=== PATIENT | male | born 1965 | race Caucasian/White ===

== ENCOUNTER 2016-07-09 11:10 | Observation (INO) | payer BC, OTHER ==
[~2016-07-09] VITALS: Ht 167.6 cm; Wt 89.0 kg
--- NOTE | ~2016-07-09 | EKG ---
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
--- NOTE | ~2016-07-09 | EEG ---
[facility] [place] [address] ELECTROENCEPHALOGRAM Name: RAO JACK Room #: 430-P [facility] Madalyn Ruelas#: [id number] Admission: 07/09/16 Attend Phys: Jasper Barrios, Discharge: 07/10/16 Date of : 61 Report #: [id number] THIS REPORT FOR: //name// CC: Dariel Barrios DATE OF SERVICE: 07/10/2016 This patient is being evaluated for dizziness. EEG was done by placing the electrodes by standard 10-20 system of electrode placement. Both referential and sequential montages were used for recording. Background activity in this patient's EEG is about 9 Hz and 20 microvolts. It is a symmetrical activity. This patient become drowsy that is associated with bilateral slowing and vertex sharp waves on both sides. Photic stimulation was unremarkable. Throughout the record, no active epileptiform activity was noticed. IMPRESSION: This patient's EEG is within normal limit. Thank you very much for this referral. By: [id number] Tucker Tapia MD /mon[place]
--- NOTE | ~2016-07-09 | D ---
[facility] [place] [address] DISCHARGE SUMMARY Name: RAO JACK JR Room #: 430-P [facility] Madalyn Ruelas#: [id number] Admission: 07/09/16 Attend Phys: Rufus Yoo Discharge: 07/10/16 Date of : 61 Report #: [id number] THIS REPORT FOR: //name// CC: Dariel Barrios FINAL DIAGNOSIS: 1. Dizziness. 2. Meningioma. HOSPITAL COURSE: The patient was admitted with dizziness. CT and MRI were obtained. 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 The patient seemed to have a being told this in the past, it is unclear whether this has changed, however; we had no other images to compare. He was seen by neurology service and they were going to empirically treat him for seizure at this time with Topamax. They recommended he be referred to a neurosurgeon at in regards to the meningioma. His lipid panel was a little bit elevated and neurology started Lipitor. He had no other interval complication. DISPOSITION: He will be discharged to home with diet and activity as tolerated, [id number] Prilosec plus Topamax 50 mg at bedtime, Lipitor 20 mg. Follow up with Dr. Barrios in a week and Dr. Abbasi in 4 weeks. <ELECTRONICALLY SIGNED> By: Vivek Zhao MD 07/13/16 1238 1644 [id number] Vivek Zhao MD /monroe
--- NOTE | ~2016-07-09 | H ---
[facility] [place] [address] HISTORY AND PHYSICAL Name: RAO JACK Room #: 430-P [facility] M.RChris#: [id number] Admission: 07/09/16 Attend Phys: Rufus Yoo Discharge: Date of : 61 Report #: [id number] THIS REPORT FOR: //name// CC: Dariel Barrios DATE OF SERVICE: 07/09/2016 CHIEF COMPLAINT: Dizziness. HISTORY OF PRESENT ILLNESS: The patient is a 50-year-old gentleman who was admitted through the Emergency Room with a 1-day onset of dizziness, left arms numbness. Symptoms began yesterday morning when he awoke, but he presented to the Emergency Room around 11:30. He said he felt like he was "in a fog," felt lightheaded, is going to faint. His reported that he was having trouble speaking. Apparently, he has been having intermittent dizzy episodes for about 3 weeks. He said they usually last for about an hour and a half. He says he feels a little bit "queasy" to the stomach, but he has had no significant nausea or vomiting. This morning, he has been up and he says he feels a little better, but still feels a little bit of lightheaded feeling. He has had no headache, chest pain, shortness of breath, fever or chills. PAST MEDICAL HISTORY: Anxiety, he has a known meningioma behind the right orbit. PAST SURGICAL HISTORY: None. FAMILY HISTORY: Noncontributory. SOCIAL HISTORY: He chews tobacco, occasional alcohol use. , lives at home. ALLERGIES: None. MEDICATIONS: None. REVIEW OF SYSTEMS: As above. He denies headache, visual change, trouble swallowing, chest pain, shortness of breath, abdominal pain, dysuria, myalgias, syncope or fall. PHYSICAL EXAMINATION: VITAL SIGNS: Temperature 36.9, pulse 61, respirations 18, blood pressure 131/84, O2 sat on room air. GENERAL: He is awake and alert, in no distress. HEAD AND NECK: Unremarkable. LUNGS: Clear. [address] [address] HISTORY AND PHYSICAL Name: RAO JACK Room #: 430-P [facility] M..#: [id number] Admission: 07/09/16 Attend Phys: Rufus Yoo Discharge: Date of : 61 Report #: [id number] HEART: Regular. ABDOMEN: Soft, normoactive bowel sounds. EXTREMITIES: No edema. NEUROLOGIC: Strength is intact. Speech is fluent. Cranial nerves intact. No nystagmus. LABORATORY AND CT reviewed. MRI reveals a meningioma behind the right orbit. ASSESSMENT: 1. Acute onset dizziness. 2. Meningioma. PLAN: I will treat him symptomatically for vertigo type symptoms. Dr. Tapia has been consulted to give an opinion regarding his symptoms. <ELECTRONICALLY SIGNED> By: Vivek Zhao MD 07/10/16 1432 0819 1002 Vivek Zhao MD /nt
[2016-07-09 11:18] VITALS: BP 132/85
[2016-07-09 12:17] LABS: MCH 30.4 pg (26.0-34.0); MCHC 34.9 g/dL (28.0-37.0); MCV 87.1 fL (80.0-100.0); RBC 4.93 mil/uL (4.50-6.00); WBC 7.3 thou/uL (4.0-11.0)
[2016-07-09 12:34] LABS: APTT 23.3 Seconds (24.5-32.8); PROTIME 10.7 Seconds (9.3-11.4)
[2016-07-09 13:14] LABS: ANION GAP 6 mmol/L (7-16); BUN 12 mg/dL (7-18); CALCIUM 8.8 mg/dL (8.5-10.1); CHLORIDE 105 mmol/L (98-107); CO2 29 mmol/L (21-32); CREATININE 0.8 mg/dL (0.7-1.3); GLUCOSE 109 mg/dL (74-106); POTASSIUM 4.5 mmol/L (3.5-5.1); SODIUM 140 mmol/L (136-145)
[2016-07-09 13:23] LABS: TROPONIN-I < 0.04 ng/mL (<0.04-0.07)
[2016-07-09 14:54] VITALS: BP 106/73
[2016-07-09 15:00] VITALS: BP 107/72; BP 112/70; BP 124/75
[2016-07-09 21:30] VITALS: BP 100/59
[2016-07-10 07:30] VITALS: BP 131/84
[2016-07-10 12:12] LABS: TSH 2.156 uIU/mL (0.358-3.740)
[2016-07-10] MEDS ORDERED: LIPITOR 20 MG T20 M1 PO (14:46)
[2016-07-10] MEDS ORDERED: TOPAMAX 25 MG T25 M1 PO (14:50)
[2016-07-10 14:51] VITALS: BP 131/84
[2016-07-10] MEDS ORDERED: PROTONIX40 M1 PO (15:13)
[2016-07-10] MEDS ORDERED: PRILOSEC 10MG C10 MG PO (15:15)
== END 2016-07-10 16:51 | disposition home or self-care (01) ==
LOC: ER 11:10 → EROBS 14:05 → 4E 15:00
PROVIDERS: Emergency Medicine; Psychiatry & Neurology Neurology
DX: R42 Dizziness and giddiness (principal); F41.9 Anxiety disorder, unspecified; D32.9 Benign neoplasm of meninges, unspecified; Z79.899 Other long term (current) drug therapy; R55 Syncope and collapse; E78.5 Hyperlipidemia, unspecified; D18.00 Hemangioma unspecified site